=== PATIENT | female | born 1995 | race Hispanic/Latino ===

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

== ENCOUNTER 2017-01-18 19:01 | Emergency (ER) | payer OTHER ==
[~2017-01-18] VITALS: Ht 149.9 cm; Wt 59.0 kg
[~2017-01-18 19:01] MED LIST changes: +DOXY1TAB3 PO; +ONDA4TAB12 PO
[2017-01-18 19:06] VITALS: BP 101/59; PULSE 78; RESP 18; O2SAT 100
--- NOTE | 2017-01-18 19:22 | ED.REPORT ---
HPI-Abd Pain F Under 40 Date of Service January 18, 2017 ED Provider: Kennedy Wilson MD Patient is a 21 year old female who is 13-14 weeks who presents to the ED complaining of lower abdominal cramping onset today. Associated symptoms include mucous-like diarrhea, nausea, chills, and increased vaginal discharge. She denies vomiting, cough, fever, dysuria, hematochezia, abnormal discharge, or any other symptoms. A family member at home also has diarrhea. She states that she is overall very healthy. She has not taken any antibiotics recently. She has no other complaints at this time. She is are not established with an OB /SLOT MANAGER. Nursing Notes Stated Complaint: SHARP ABDOMINAL PAIN, DIARRHEA, DIZZYNESS, NAUSEA Chief Complaint: Female Abdominal Pain Nursing Notes Reviewed: Yes Allergies: Coded Allergies: No Known Allergies (Unverified Allergy, Unknown, 12/17/16) Scheduled ([Docusate Sodium]) 100 MG CAPSULE 100 MG PO BID Doxylamine/Pyridoxine 10-10 mg (Diclegis DR 10-10 mg) 1 Each Tablet.dr 2 TABLET PO HS Levetiracetam (Levetiracetam) 500 Mg Tablet 500 MG PO BID Metronidazole (Flagyl) 500 Mg Tablet 500 MG PO BID Ondansetron ODT (Ondansetron ODT) 4 Mg Tab.rapdis 4 MG PO TID Scheduled PRN Ibuprofen (Ibuprofen) 800 Mg Tablet 800 MG PO Q6H PRN PRN For Pain oxyCODONE-Acetaminophen 5-325 mg (oxyCODONE-Acetaminophen 5-325 mg) 1 Each Tablet 1 TAB PO Q4H PRN PRN For Pain General Time Seen by MD: 19:15 Chief Complaint Abdominal pain Hx Obtained From: Patient Arrived By: Walk-in Past Medical History Past Medical History Epilepsy Herpes type 1 Past Surgical History [place] teeth Family History Pt mother had placenta previa. Smoking History Never Smoker Social History Alcohol Use: Denies alcohol use Other Social History: Frequent ED visitor, Lives with parents, Lives with children, Local resident Occupation moving in with Mom Ambulatory Status Independent Review of Systems Constitutional: Reports: Chills, Denies: Fever Respiratory: Denies: Non-productive cough GI: Reports: Abdominal pain, Diarrhea, Nausea, Denies: Hematochezia, Vomiting Female: Reports: Vaginal discharge, Denies: Dysuria Complete sys rev & neg: except as marked. Physical Exam Initial Vital Signs Vital Signs (First) Date Time Temp Pulse Resp B/P Pulse Ox O2 Delivery O2 Flow Rate FiO2 01/18/17 19:06 36.2 78 18 101/59 100 Room Air Initial VS: Reviewed Head / Eyes: Atraumatic, Normocephalic ENT: Mucous membranes moist Neck: Full range of motion Skin: Warm, Dry Neurologic: Alert, Oriented, Nonfocal Psychiatric: Mood/affect normal, Behavior normal, Normal thought content General/Constitutional: Awake, Alert, Well developed Respiratory / Chest: Breath sounds NL, Breath sounds = bilat, No respiratory distress Cardiovascular: Heart rate NL, Regular rhythm, Heart sounds NL, No gallop, No murmurs, No rubs Abdomen: Soft, No guarding, No rebound, No distention Mild superpubic tenderness Back: Inspection NL, No CVA tenderness Female Genitourinary: Lead Nurse present, No bleeding, No cervical motion tend Normal external genitalia Normal vaginal canal Interpretation & Diagnostics Lab Results Interpretation Result Diagram: 01/18/17201501/18/17 2016 Test 01/18/17 20:16 01/18/17 20:21 01/18/17 21:08 White Blood Count 9.8th/mm3 (3.8-10.1) Red Blood Count 3.97mil/mm3 (3.90-5.20) Hemoglobin 11.3g/dL (12.0-15.6) Hematocrit 34.2% (35.0-46.0) Mean Corpuscular Volume 86.1fL (81-100) Mean Corpuscular Hemoglobin 28.5pg (27.0-35.0) Mean Corpuscular Hemoglobin Concent 33.0% (32.0-37.0) Red Cell Distribution Width 13.6% (12.3-15.4) Platelet Count 313bil/L (150-400) Neutrophils (%) (Auto) 52.8% (40-74) Lymphocytes (%) (Auto) 39.4% (14-46) Monocytes (%) (Auto) 6.1% (4-12) Eosinophils (%) (Auto) 1.0% (0-5) Basophils (%) (Auto) 0.5% (0-3) Sodium Level 136mEq/L (134-144) Potassium Level 3.9mEq/L (3.5-5.2) Chloride Level 102mEq/L (97-108) Carbon Dioxide Level 20mmol/L (18-29) Blood Urea Nitrogen 2mg/dL (6-20) Creatinine 0.31mg/dL (0.57-1.00) Estimat Glomerular Filtration Rate 395mL/min (>59) Glucose Level 95mg/dL (60-99) Calcium Level 9.2mg/dL (8.5-10.1) Magnesium Level 2.0mg/dL (1.6-2.6) Total Bilirubin 0.2mg/dL (0.0-1.2) Aspartate Amino Transf (AST/SGOT) 14U/L (0-50) Alanine Aminotransferase (ALT/SGPT) 8U/L (0-32) Alkaline Phosphatase 91U/L (25-150) Total Protein 6.8g/dL (6.4-8.4) Albumin 3.8g/dL (3.4-5.0) Lipase 19U/L (13-60) HCG Beta Subunit [id number]/mL Hold D[place]on Top Tube Received (Received) Urine Color Yellow (YELLOW) Urine Appearance Clear (CLEAR,HAZY) Urine pH 6.5 (5.0-8.0) Urine Specific [place] 1.010 (1.003-1.035) Urine Protein Negativemg/dL (NEG,TRACE) Urine Glucose (UA) Negativemg/dL (NEGATIVE) Urine Ketones 15mg/dL (NEGATIVE) Urine Occult Blood Negative (NEGATIVE) Urine Nitrite Negative (NEGATIVE) Urine Bilirubin Negative (NEGATIVE) Urine Urobilinogen Normalmg/dL (NORMAL) Urine Leukocyte Esterase Negative (NEGATIVE) Urine RBC 0-2/hpf (0-2) Urine WBC 0-5/hpf (0-5) Urine Epithelial Cells Few/hpf (NONE-MOD) Urine Crystals None seen (NONE SEEN) Urine Bacteria Few/hpf (NONE-FEW) Urine Hyaline Casts None/lpf (NONE) Urine Granular Casts None seen (NONE SEEN) Urine Waxy Casts None seen (NONE SEEN) Urine Red Blood Cell Casts None seen (NONE SEEN) Urine White Blood Cell Casts None seen (NONE SEEN) Urine Mucus None seen (None Seen) Urine Trichomonas None seen (NONE SEEN) Urine Yeast None (NONE SEEN) Urinalysis Comment None Urine Culture Reflexed Not indicated Re-Eval/Medical Decision Med Decision/Clinical Course Patient is a 21 year old female who is 13-14 weeks who presents to the ED complaining of lower abdominal cramping onset today. Associated symptoms include mucous-like diarrhea, nausea, chills, and increased vaginal discharge. She denies vomiting, cough, fever, dysuria, hematochezia, abnormal discharge, or any other symptoms. A family member at home also has diarrhea. She states that she is overall very healthy. She has not taken any antibiotics recently. She has no other complaints at this time. She is are not established with an OB /SLOT MANAGER. Here in the emergency department the patient is afebrile with stable vital signs in no apparent distress. Abdominal examination is completely benign and there are no findings suggestive of acute surgical intra-abdominal process. Laboratory studies were normal as below: No Leuk Hematocrit 34.2 CMP unremarkable Lipase neg HCG 86030 Urine: no sign of UTI The patient reported mild nausea and was treated with Zofran and 1 L of IV fluids. She reported feeling much better. Pelvic examination was relatively benign and I do not appreciate any abnormal discharge. Wet mount demonstrated clue cells however. GC/Chlamydia is pending though her presentation is not suggestive thereof. Cervix is closed and she has had no vaginal bleeding suggestive of threatened . She has had some diarrhea she has not been treated with any recent antibiotics and she has not had any bloody diarrhea. My suspicion for acute bacterial etiologies is low. We will go ahead and treat her with a 7 day course of Flagyl for bacterial vaginosis. She will follow up closely with her [employer]. At this time, I feel that she is appropriate for discharge home. Prior to discharge follow-up and return precautions were reviewed in detail with the patient who verbalized understanding and agreement with the plan. The patient was discharged in stable condition. Re-Evaluation/Progress : Time of Eval: 21:39 Re-Evaluation/Progress Note: Rechecked patient. Discussed plan for discharge. Patient understands and agrees with plan. All questions addressed at this time. Counseled Regarding: Diagnosis, Lab results, Need for follow-up, When/why to return to ED Discharge & Departure Primary Impression: Abdominal cramping Additional Impressions: Bacterial vaginosis Weeks of gestation: 13 weeks Qualified Code: Z3A.13 - 13 weeks gestation of Disposition: Home Discharge Condition All VS Reviewed: Yes Condition: Stable Additional Instructions: Thank you for seeking care at the emergency room. It is difficult for us to make definitive diagnoses in the ED but we believe that you are experiencing bacterial vaginosis. Our primary goal today in the ED was to evaluate you for any life-threatening conditions. Your evaluation was reassuring. You will be discharged with a prescription for Flagyl. You should follow-up with your primary doctor and OBGYN in the next week. You should return to the ED immediately if you develop vaginal bleeding, vomiting, fevers, worsening pain, or any other concerning signs or symptoms. Thank you for letting us partake in your care today. Referrals: Eve Carlin MD (PCP) Scribe Attestation Portions of this note were transcribed by Julito Welch. I, Dr. Wilson personally performed the history, physical exam and medical decision-making; I reviewed and confirmed the accuracy of the information in the transcribed note. Signed by: Julito Welch 01/18/2017, 1810 copies to: Eve Carlin MD, Beck O MD January 18, 2017 19:22 JULITO WELCH January 18, 2017 19:31
[2017-01-18] MEDS ORDERED: 0.9% Sodium Chloride 1,000 ML IV ONE (20:01)
[2017-01-18] MEDS ORDERED: Ondansetron 2 mg/mL 2 mL Inj IVPUSH ONE (20:05)
[2017-01-18 20:31] LABS: BASOPHILS % (AUTO) 0.5 % (0-3); MONOCYTES % (AUTO) 6.1 % (4-12); Mean Corpuscular Hemoglobin 28.5 pg (27.0-35.0); Mean Corpuscular Volume 86.1 fL (81-100); NEUTROPHILS % (AUTO) 52.8 % (40-74); Platelet Count 313 bil/L (150-400)
[2017-01-18] MEDS ORDERED: METR500T PO (21:14)
[2017-01-18 21:20] LABS: APPEARANCE,URINE CLEAR (CLEAR,HAZY); COLOR,URINE YELLOW (YELLOW); OCCULT BLOOD,URINE NEGATIVE (NEGATIVE); PH,URINE 6.5 (5.0-8.0); UROBILINOGEN,URINE NORMAL (NORMAL)
[2017-01-18 22:30] VITALS: BP 94/60; PULSE 74; RESP 16; O2SAT 99
== END 2017-01-18 22:33 | disposition home or self-care (01) ==
LOC: SED 19:01
DX: O26.891 Other specified pregnancy related conditions, first trimester (principal); O23.591 Infection of other part of genital tract in pregnancy, first trimester; R10.9 Unspecified abdominal pain; G40.909 Epilepsy, unspecified, not intractable, without status epilepticus; Z3A.13 13 weeks gestation of pregnancy; Z86.19 Personal history of other infectious and parasitic diseases
CPT/HCPCS: 36415; 80053; 81000; 83690; 83735; 84702; 85025; 87210; 96361; 96374; 99285; J2405; J7030

== ENCOUNTER 2017-04-15 22:15 | Emergency (ER) | payer OTHER ==
[~2017-04-15] VITALS: Ht 149.9 cm; Wt 71.4 kg
[~2017-04-15 22:15] MED LIST changes: +METR500T PO
[2017-04-15 22:26] VITALS: BP 100/45; PULSE 76; O2SAT 100
[2017-04-15] MEDS ORDERED: Ondansetron 2 mg/mL 2 mL Inj IVPUSH PRN (22:40)
[2017-04-15] MEDS ORDERED: 0.9% Sodium Chloride 1,000 ML IV ONE (22:40)
--- NOTE | 2017-04-15 22:40 | ED.REPORT ---
HPI-Dizziness / Weakness Date of Service Apr 15, 2017 ED Provider: Michele Mccollum MD A 25 week 22 year old female with a history of epilepsy is referred to the ED by her OB due to dizziness. The pt was at an OB appointment today when she began feeling nauseated and dizzy. This was accompanied by right-sided back pain, pelvic pain, lightheadedness, blurred vision. She also admits to hematochezia yesterday, but did not notice any today. The pt denies fever, vomiting, weakness, numbness, tingling, difficulty speaking or difficulty swallowing. Nursing Notes Stated Complaint: DIZZINESS Chief Complaint: & Delivery Nursing Notes Reviewed: Yes Allergies: Coded Allergies: No Known Allergies (Unverified Allergy, Unknown, 12/17/16) Scheduled ([Docusate Sodium]) 100 MG CAPSULE 100 MG PO BID Doxylamine/Pyridoxine 10-10 mg (Diclegis DR 10-10 mg) 1 Each Tablet.dr 2 TABLET PO HS Ferrous Sulfate (Ferrous Sulfate) 325 Mg Tablet.dr 325 MG PO BID Levetiracetam (Levetiracetam) 500 Mg Tablet 500 MG PO BID Metronidazole (Flagyl) 500 Mg Tablet 500 MG PO BID Ondansetron ODT (Ondansetron ODT) 4 Mg Tab.rapdis 4 MG PO TID Scheduled PRN Ibuprofen (Ibuprofen) 800 Mg Tablet 800 MG PO Q6H PRN PRN For Pain oxyCODONE-Acetaminophen 5-325 mg (oxyCODONE-Acetaminophen 5-325 mg) 1 Each Tablet 1 TAB PO Q4H PRN PRN For Pain General Time Seen by MD: 22:39 Chief Complaint Dizzy Hx Obtained From: Patient Arrived By: Walk-in Onset Occurred: 1 - 4 hours ago Recent Healthcare: Recent doctor visit Similar Sx Previous: No Past Medical History Past Medical History Epilepsy Herpes type 1 Past Surgical History [place] teeth Family History Pt mother had placenta previa. Smoking History Never Smoker Social History Alcohol Use: Denies alcohol use Other Social History: Good social support, Frequent ED visitor, Lives with parents, Lives with children, Local resident Occupation moving in with Mom Ambulatory Status Independent Review of Systems Review of Systems Note: tongue numbness denies tingling denies difficulty speaking or swallowing Constitutional: Denies: Fever, Weakness - generalized Eyes: Reports: Blurred bilateral Respiratory: Denies: Non-productive cough, Shortness of breath Cardiovascular: Denies: Chest pain GI: Reports: Hematochezia, Nausea, Denies: Abdominal pain, Vomiting Skin: Denies Rash Neurologic: Reports: Dizziness, Lightheaded, Denies: Numbness Complete sys rev & neg: except as marked. Female: Reports: Pelvic pain Musculoskeletal: Reports: Back pain Physical Exam Initial Vital Signs Vital Signs (First) Date Time Temp Pulse Resp B/P Pulse Ox O2 Delivery O2 Flow Rate FiO2 04/15/17 22:26 36.9 76 100/45 100 Room Air Initial VS: Reviewed General/Constitutional: Awake, Alert Head / Eyes: Atraumatic, Normocephalic, PERRL, EOMI Respiratory / Chest: Atraumatic, Breath sounds NL, Breath sounds = bilat, No respiratory distress Cardiovascular: Heart rate NL, Regular rhythm, Heart sounds NL Neurologic: Oriented X3, Speech NL, No motor deficits, No sensory deficits, CN II - XII intact ENT: Atraumatic, Airway patent, Mucous membranes moist Neck: Atraumatic, Supple, Full range of motion Abdomen: Atraumatic, Soft, Non-tender gravid uterus Back: Atraumatic, Full range of motion, No CVA tenderness Lower Extremity / Pelvis / MS: Atraumatic, Full range of motion, No edema Skin: Atraumatic, Color NL, No rash, Warm, Dry Psychiatric: Affect NL, Mood NL Upper Extremity / MS: Atraumatic, Full range of motion Rectum / Perineum: Atraumatic, No gross blood, No hemorrhoids, No mass Re-Eval/Medical Decision Med Decision/Clinical Course 22-year-old female history of seizure disorder 25 weeks sent in by her [employer] for dizziness onset earlier today. Patient reports lightheadedness which is improved with fluids here. She has no other neurological symptoms. Her neurological exam is normal. Her labs show hemoglobin of 8.6 which is a decrease from previous of 11 3 months ago. She did report some rectal bleeding yesterday but none today. She is guaiac-negative. She denies any other bleeding. He also had a recent increase in her Keppra several days ago. Most likely cause of her dizziness is anemia versus medication due to Keppra. There are no neurological deficits on exam to suggest CVA.. She was worked up by her [employer] earlier today when she complained of pelvic pain most child was okay. There is no gynecological cause for her pelvic pain. This is resolved. Her urine is negative. Patient requests to go home she requested no further workup. She will be started on iron for her anemia. She will call her neurologist tomorrow to discuss the Keppra and the dizziness. Return precautions given. Source of Hx: Old records Re-Evaluation/Progress : Time of Eval: 23:11 Patient Status: Condition improved Re-Evaluation/Progress Note: Pt rechecked, who is comfortable. The diagnosis and plan for discharge are discussed. The pt understands and agrees with the plan. All questions are addressed at this time. Counseled Regarding: Diagnosis, Lab results, Need for follow-up, When/why to return to ED Patient Discharge & Departure Impression: Primary Impression: Dizziness Additional Impression: Anemia Anemia type: other cause Other causes of anemia: other cause, not classified Qualified Code: D64.89 - Other specified anemias Disposition: Home Discharge Condition All VS Reviewed: Yes Condition: Stable Patient Instructions: Anemia (ED), Dizziness (ED) Additional Instructions: Thank you for allowing us to be part of your care. The dizziness is likely due to your anemia. It may also be related to your Keppra. Your labs were reassuring other than the low hemoglobin. Take iron twice daily. Follow up with your neurologist in the next several days to discuss your Keppra dose. Follow up with your [employer] in the next couple of days for further evaluation. Call your primary care physician to arrange a follow up appointment this week. Return to the emergency department if you develop weakness, worsening dizziness , numbness, tingling, fever, rectal bleeding, vomiting, passing out, shortness of breath, chest pain, difficulty speaking or swallowing, or any new or worsening symptoms. Referrals: [facility] Scribe Attestation Portions of this note were transcribed by Perry Cyr. I, Dr. Mccollum personally performed the history, physical exam and medical decision-making; I reviewed and confirmed the accuracy of the information in the transcribed note. [facility] Michele Mccollum MD Apr 15, 2017 22:40 PERRY CYR Apr 15, 2017 23:05
[2017-04-15 23:18] VITALS: BP 106/53; PULSE 75; O2SAT 100
[2017-04-15] MEDS ORDERED: FERR325T6 PO (23:22)
[2017-04-15 23:43] VITALS: BP 106/53; PULSE 75; O2SAT 100
== END 2017-04-15 23:45 | disposition home or self-care (01) ==
LOC: SED 22:15
DX: O99.012 Anemia complicating pregnancy, second trimester (principal); Z86.69 Personal history of other diseases of the nervous system and sense organs; Z3A.25 25 weeks gestation of pregnancy